=== PATIENT | female | born 1965 | race Two or more races ===

== ENCOUNTER 2017-07-28 10:58 | Observation (INO) | payer OTHER ==
[~2017-07-28] VITALS: Ht 144.8 cm; Wt 68.0 kg
[2017-07-28 11:54] LABS: Basophils # (auto) 0 uL; Basophils % (auto) 0.5 % (0.0-2.0); Eosinophils # (auto) 0.1 uL; Eosinophils % (auto) 1.3 % (0.0-7.0); Hematocrit 41.8 % (36.0-46.0); Hemoglobin 13.9 g/dL (12.2-16.2); Lymphocytes # (auto) 1.2 uL; Lymphocytes % (auto) 17.8 % (10.0-50.0); Mean Corpuscular Hemoglobin 30.9 pg (28.0-32.0); Mean Corpuscular Hgb Conc. 33.2 g/dL (32.0-36.0); Monocytes # (auto) 0.4 uL; Monocytes % (auto) 6.2 % (0.0-12.0); Neutrophils # (auto) 5.2 uL; Neutrophils % (auto) 74.2 % (37.0-80.0); Platelet Count (auto) 348 10^3/uL (140-450); Red Cell Distribution Width 13.5 % (11.8-14.3)
[2017-07-28 12:16] LABS: Albumin 3.5 g/dL (3.4-5.0); BUN/Creatinine Ratio 15.7; Bilirubin, Total 0.6 mg/dL (0.2-1.0); Calcium 8.8 mg/dL (8.5-10.1); Magnesium 2.6 mg/dL (1.6-2.6); Potassium 4.1 mmol/L (3.5-5.1); Total Protein 7.7 g/dL (6.4-8.2)
[2017-07-28 14:16] LABS: Alcohol, Urine < 3.0 mg/dL (0-5); Amphetamine Screen, Urine NEGATIVE (NEGATIVE); Barbiturate Scree,Urine NEGATIVE (NEGATIVE); Benzodiazephine Screen, Urine NEGATIVE (NEGATIVE); Cannabinoid Screen, Urine NEGATIVE (NEGATIVE); Cocaine Screen, Urine NEGATIVE (NEGATIVE); Opiate Scree,Urine NEGATIVE (NEGATIVE); Phencyclidine Screen, Urine NEGATIVE (NEGATIVE)
[2017-07-28 14:22] VITALS: BP 138/96
[2017-07-28 14:30] LABS: Urine Bacteria NONE SEEN /hpf (None Seen); Urine Blood Negative /uL (Negative); Urine Specific Gravity 1.006 (1.001-1.035); Urine WBC 1 /hpf (0 - 5)
== END 2017-07-28 15:17 | disposition home or self-care (01) | DRG 754 ==
LOC: ER 10:58 → OVERFLOW 11:27 → ER 15:17
PROVIDERS: ADMIT Family Medicine; ATTEND Family Medicine
DX: F32.9 Major depressive disorder, single episode, unspecified (principal); Z82.49 Family history of ischemic heart disease and other diseases of the circulatory system; Z90.710 Acquired absence of both cervix and uterus
CPT/HCPCS: 36415; 71045; 80053; 80307; 81001; 83735; 85025; 99285; G0378